=== PATIENT | female | born 1960 | race African-American/Black ===

== ENCOUNTER → 2024-06-05 | Outpatient (CLI) | payer MEDICARE ==
[~2024-06-05] VITALS: Ht 165.1 cm; Wt 89.0 kg
[~2024-06-05] MED LIST: AMLO-257 PO; APIX5TAB PO; LOSA-382 PO; SIMV-260 PO
[2024-06-05 10:51] VITALS: BP 133/83; PULSE 80; RESP 18; TEMP 97.6; O2SAT 94
== END | disposition home or self-care (01) ==
LOC: SRCNTR 09:42
PROVIDERS: ATTEND Internal Medicine
DX: I26.99 Other pulmonary embolism without acute cor pulmonale (principal); I10 Essential (primary) hypertension; E66.9 Obesity, unspecified; E11.9 Type 2 diabetes mellitus without complications; Z79.899 Other long term (current) drug therapy; Z88.0 Allergy status to penicillin; Z96.652 Presence of left artificial knee joint
CPT/HCPCS: G0463; Z7500